=== PATIENT | female | born 1945 | race Caucasian/White ===

== ENCOUNTER → 2016-10-30 | Outpatient (CLI) | payer BC ==
[~2016-10-30] MED LIST: CHOL100010 PO; CHOL200010 PO; CRDCD120 PO; ELQ25 PO; IBUP-1050 PO; LACT1CAP6 PO; LEVO75TA PO; RANITAB33 PO; ZANTAC PO
--- NOTE | 2016-11-01 16:08 | MAMMOGRAPHY REPORT ---
BILATERAL DIGITAL SCREENING MAMMOGRAM TOMOSYNTHESIS WITH CAD: 10/30/2016 CLINICAL HISTORY: Routine screening. Patient has no complaints. TECHNIQUE: Breast tomosynthesis in addition to standard 2D mammography was performed. Current study was also evaluated with a Computer Aided Detection (CAD) system. COMPARISON: Comparison is made to exams dated: 10/19/2015 mammogram, 10/21/2014 ultrasound, 10/21/2014 mammogram, 10/10/2014 mammogram, and 10/07/2013 mammogram - [facility]. BREAST COMPOSITION: The tissue of both breasts is extremely dense, which lowers the sensitivity of m ammography. FINDINGS: No suspicious masses, calcifications, or areas of architectural distortion are noted in ei ther breast. There has been no significant interval change compared to prior exams. IMPRESSION: ACR BI-RADS CATEGORY 1: NEGATIVE There is no mammographic evidence of malignancy. A 1 year screening mammogram is recommended. The pa tient will receive written notification of the results. Approximately 10% of breast cancers are not detected with mammography. A negative mammographic report should not delay biopsy if a clinically suggestive mass is present. Lilly Atkinson M.D. /:11/01/2016 15:52:49 Aesthetics Instructor: Arelis NORRIS(Sofi)(M), [facility] letter sent: Normal 1/2 BI-RADS Code: ACR BI-RADS Category 1: Negative
== END | disposition home or self-care (01) ==
LOC: C.MAMM 10:47
PROVIDERS: ATTEND Obstetrics & Gynecology
DX: Z12.31 Encounter for screening mammogram for malignant neoplasm of breast (principal)

== ENCOUNTER 2016-11-05 13:59 | Observation (INO) | payer BC ==
[~2016-11-05] VITALS: Ht 175.3 cm; Wt 61.0 kg
[~2016-11-05 13:59] MED LIST changes: -CHOL200010 PO; -CRDCD120 PO; -ELQ25 PO; -ESMOLOL HCL 10 MG/ML 10 ML VIAL ONE; -LIDOCAINE HCL 2% 2 ML VIAL (20MG/ML) ONE; -METOPROLOL TARTRATE 1 MG/ML VIAL ONE; -PROPOFOL IV EMULSION 10 MG/ML 20 ML VIAL IV ONE; -SODIUM CHLORIDE 0.9% 500ML 500 ML IV ONE; -ZANTAC PO
[2016-11-05] MEDS ORDERED: SODIUM CHLORIDE 0.9% 1000ML 1,000 ML IV STA (14:21)
--- NOTE | 2016-11-05 14:24 | EMERGENCY ROOM VISIT NOTE ---
History Report prepared by Nathan: Letty Paz Under the Supervision of: Mikaela SchmittO. First contact with patient: 14:01 Stated Complaint: afib s/p colonscopy History of Present Illness The patient is a 70 year old female who presents to the Emergency Room with complaints of a sudden irregular heartbeat that began prior to arrival. The patient reports that today she had a colonoscopy at 1235. She states that she woke up after the procedure in the room and was told that she went into atrial fibrillation. The patient denies any history of atrial fibrillation, but states that she has extra beats. She states that she previously followed with cardiology, but denies following with cardiology currently. The patient reports a history of Graves disease and a thyroid problem. She states that she was having a large colonoscopy because a polyp was found during her colonoscopy last year. The patient denies any tachycardia, palpitations, chest pain, shortness of breath, dizziness, lightheadedness, nausea, numbness, or swelling in her lower extremities. Source of History: patient Onset: prior to arrival Position: other (global) Quality: other (irregular heartbeat) Timing: other (sudden) Associated Symptoms: No chest pain, No SOB, No nausea, No numbness Review of Systems See HPI for pertinent positives & negatives. A total of 10 systems reviewed and were otherwise negative. Past Medical & Surgical Medical Problems: (1) Colitis presumed infectious (2) Colitis, acute (3) History of - pneumonia (4) HYPOTHYROIDISM NOS (5) Leukopenia (6) New onset a-fib Family History Diabetes mellitus FHx: cancer FHx: heart disease Hypertension Social History Smoking Status: Never Smoker Alcohol Use: occasionally Drug Use: none Marital Status: Housing Status: lives with family Occupation Status: retired Current/Historical Medications Scheduled Apixaban (Eliquis), 5 MG PO BID Cholecalciferol (Vitamin D), 2,000 UNITS PO DAILY Diltiazem HCl (Diltiazem Cd), 120 MG PO QAM Lactobacillus (Probiotic), 1 CAP PO QAM Levothyroxine Sodium (Synthroid), 75 MCG PO QAM Scheduled PRN Ibuprofen (Advil), 200 MG PO Q4H PRN for Pain Ranitidine Hcl (Zantac), 75 MG PO DAILY PRN for Indigestion Allergies Coded Allergies: Alendronate (Verified Allergy, Unknown, Bone pain., 10/31/16) Propylthiouracil (Verified Allergy, Unknown, Palpitations., 10/31/16) Physical Exam Vital Signs Date Time Temp Pulse Resp B/P (MAP) Pulse Ox O2 Delivery O2 Flow Rate FiO2 11/05/16 15:14 86 15 150/96 98 Room Air 11/05/16 14:27 84 11/05/16 14:13 36.6 104 16 151/99 99 Room Air 11/05/16 14:13 99 Room Air 11/05/16 14:13 98 Room Air Physical Exam GENERAL: alert, well appearing, well nourished, no distress, non-toxic EYE EXAM: normal conjunctiva, PERRL and EOM's grossly intact OROPHARYNX: no exudate, no erythema, lips, buccal mucosa, and tongue normal and mucous membranes are moist NECK: supple, no nuchal rigidity, no adenopathy, non-tender LUNGS: Clear to auscultation. Normal chest wall mechanics HEART: Heart rate is fast and irregular. No murmurs. ABDOMEN: abdomen soft, non-tender, normo-active bowel sounds, no masses, no rebound or guarding. BACK: Back is symmetrical on inspection and there is no deformity, no midline tenderness, no CVA tenderness. SKIN: no rashes and no bruising UPPER EXTREMITIES: upper extremities are grossly normal. LOWER EXTREMITIES: No pitting edema. NEURO EXAM: Normal sensorium, cranial nerves II-XII grossly intact, normal speech, no gross weakness of arms, no gross weakness of legs. Medical Decision & Procedures ER Provider Diagnostic Interpretation: Radiology results have been interpreted by the radiologist and reviewed by me. CHEST ONE VIEW PORTABLE CLINICAL HISTORY: 70 years-old Female presenting with new A.fib. TECHNIQUE: Portable upright AP view of the chest was obtained. COMPARISON: None. FINDINGS: Cardiomediastinal silhouette normal. Lungs and pleural spaces clear. Osseous structures normal. Upper abdomen normal. IMPRESSION: 1. No acute cardiopulmonary disease. Electronically signed by: Tanner Adams M.D. 11/05/2016 2:36 PM Dictated Date/Time: 11/05/2016 2:36 PM Laboratory Results Test 11/05/16 15:10 Immature Granulocyte % (Auto) 0.2 % White Blood Count 5.95 K/uL (4.8-10.8) Red Blood Count 4.55 M/uL (4.2-5.4) Hemoglobin 15.1 g/dL (12.0-16.0) Hematocrit 42.6 % (37-47) Mean Corpuscular Volume 93.6 fL (80-100) Mean Corpuscular Hemoglobin 33.2 pg (25-34) Mean Corpuscular Hemoglobin Concent 35.4 g/dl (32-36) Platelet Count 177 K/uL (130-400) Mean Platelet Volume 9.6 fL (7.4-10.4) Neutrophils (%) (Auto) 73.8 % Lymphocytes (%) (Auto) 16.8 % Monocytes (%) (Auto) 7.9 % Eosinophils (%) (Auto) 0.8 % Basophils (%) (Auto) 0.5 % Neutrophils # (Auto) 4.39 K/uL (1.4-6.5) Lymphocytes # (Auto) 1.00 K/uL (1.2-3.4) Monocytes # (Auto) 0.47 K/uL (0.11-0.59) Eosinophils # (Auto) 0.05 K/uL (0-0.5) Basophils # (Auto) 0.03 K/uL (0-0.2) Immature Granulocyte # (Auto) 0.01 K/uL (0.00-0.02) Prothrombin Time 11.0 SECONDS (9.0-12.0) Prothromb Time International Ratio 1.0 (0.9-1.1) Magnesium Level 2.2 mg/dl (1.8-2.4) Total Bilirubin 2.1 mg/dl (0.2-1) Aspartate Amino Transf (AST/SGOT) 21 U/L (15-37) Alanine Aminotransferase (ALT/SGPT) 31 U/L (12-78) Alkaline Phosphatase 73 U/L (45-117) Troponin I < 0.015 ng/ml (0-0.045) Pro-B-Type Natriuretic Peptide 898 pg/ml (0-900) Total Protein 7.2 gm/dl (6.4-8.2) Albumin 3.9 gm/dl (3.4-5.0) Globulin 3.3 gm/dl (2.5-4.0) Albumin/Globulin Ratio 1.2 (0.9-2) Thyroid Stimulating Hormone (TSH) 1.410 uIu/ml (0.300-4.500) Laboratory results per my review. Medications Administered Medications (Trade) Dose Ordered Sig/Natalya Route Start Time Stop Time Status Last Admin Dose Admin Sodium Chloride 1,000 ml @ 125 mls/hr Q8H STAT IV 11/05/16 14:21 11/05/16 22:20 DC 11/05/16 15:16 125 MLS/HR ECG Indication: other (atrial fibrillation) Rate (beats per minute): 68 Rhythm: atrial fibrillation Findings: no acute ischemic change, other (normal axis, normal QTC, normal QRS) ED Course 1412: The patient was evaluated in room C1B. A complete history and physical exam was performed. 1421: Ordered Sodium Chloride 1000 ml @ 125 mls/hr IV. 1435: Discussed with LAURA Shetty in endo, patient was initially normal sinus on the monitor per her understanding during the procedure, upon insertion of the scope perform a colonoscopy patient's heart rate was in the 130s and it was noted that she was in A. fib. Patient was given 180 mg of propofol and 40 g of lidocaine for anesthesia. Following the change in her rhythm, patient was given 2.5 mg IV of metoprolol which brought her heart rate down in the 70s and 80s which is where she remained for the rest of the procedure. 1507: I spoke to Dr. Ledezma, Anesthesiology. He states that the patient went into atrial fibrillation about 2/[address] way through the procedure. He states that the patient was treated, but states that since this was new he sent the patient to the emergency department for further work up and treatment. 1508: Ordered Diltiazem HCl 1 ea IV. 1515: Ordered Diltiazem HCl 125 mg/Dextrose 125 ml @ 0 mls/hr Protocol IV. 1556: Discussed with CELESTINE Carvalho with Dr. Layne for evaluation. Cardizem currently off. Medical Decision Differential diagnosis: Etiologies such as premature contractions, electrolyte abnormality, cardiac dysrhythmia, thyroid dysfunction, pulmonary embolism, infection, gastrointestinal, as well as others were entertained. Pt well appearing and asymptomatic, no hx of a.fib. Given metoprolol during procedure and mostly rate controlled while in the ER. Cardizem ready but turned off as pt remained less than 100. Pt given single dose of lovenox as still in a.fib. No hx of gi bleed and no polypectomy today. VS stable and pt well appearing. No other obvious etiology of pt's new a.fib. Low CHADS-VASC2 score but likely needs cardiology evaluation given persistence of a.fib despite being rate controlled. Doubt related to acute thyroid dysfunction despite hx of Graves, no recent med changes. No recent illness and sx hx or PE to suggest acute infectious etiology. Medication Reconcilliation Current Medication List: was personally reviewed by me Blood Pressure Screening Patient's blood pressure: Elevated blood pressure Blood pressure disposition: Elevated BP felt to be situational, Did not require urgent referral Impression Primary Impression: Atrial fibrillation Scribe Attestation The scribe's documentation has been prepared under my direction and personally reviewed by me in its entirety. I confirm that the note above accurately reflects all work, treatment, procedures, and medical decision making performed by me. Departure Information Dispostion Being Evaluated By Hospitalist Prescriptions Apixaban (ELIQUIS) 2.5 Mg Tab 5 MG PO BID, #60 TAB Prov: Bar Rollins D.O. 11/06/16 Diltiazem HCl (Diltiazem Cd) 120 Mg Capcr 120 MG PO QAM, #30 TABS Prov: Bar Rollins D.O. 11/06/16 Referrals Edy Monk M.D. (PCP) Problem Qualifiers Primary Impression: Atrial fibrillation Atrial fibrillation type: unspecified Qualified Codes: I48.91 - Unspecified atrial fibrillation
--- NOTE | 2016-11-05 14:38 | DIAGNOSTIC IMAGING REPORT ---
CHEST ONE VIEW PORTABLE CLINICAL HISTORY: 70 years-old Female presenting with new A.fib. TECHNIQUE: Portable upright AP view of the chest was obtained. COMPARISON: None. FINDINGS: Cardiomediastinal silhouette normal. Lungs and pleural spaces clear. Osseous structures normal. Upper abdomen normal. IMPRESSION: 1. No acute cardiopulmonary disease. Electronically signed by: Tanner Adams M.D. 11/05/2016 2:36 PM Dictated Date/Time: 11/05/2016 2:36 PM
[2016-11-05] MEDS ORDERED: DILTIAZEM BOLUS / DRIP IV STA (15:08)
[2016-11-05] MEDS ORDERED: DILTIAZEM HCL INJ 125 MG in DEXTROSE 5% 100ML IV PRN (15:15)
[2016-11-05 15:31] LABS: BASO % 0.5 %; BASO ABS # 0.03 K/uL (0-0.2); COMPLETE YES; EOS % 0.8 %; HEMATOCRIT 42.6 % (37-47); IG% 0.2 %; LYMPH % 16.8 %; MEAN CELL VOLUME 93.6 fL (80-100); MEAN CORPUSCULAR HEMOGLOBIN 33.2 pg (25-34); MEAN CORPUSCULAR HGB CONC 35.4 g/dl (32-36); MEAN PLATELET VOLUME 9.6 fL (7.4-10.4); MONO % 7.9 %; NEUT % 73.8 %; PLATELET COUNT 177 K/uL (130-400); RED BLOOD COUNT 4.55 M/uL (4.2-5.4); WHITE BLOOD COUNT 5.95 K/uL (4.8-10.8)
[2016-11-05 15:48] LABS: ALT/SGPT 31 U/L (12-78); BLOOD UREA NITROGEN 8 mg/dl (7-18); BUN/CREATININE RATIO 9.3 (10-20); CALCIUM 8.9 mg/dl (8.5-10.1); CARBON DIOXIDE 28 mmol/L (21-32); CHLORIDE 105 mmol/L (98-107); CREATININE 0.89 mg/dl (0.60-1.20); GLUCOSE 84 mg/dl (70-99); POTASSIUM 3.9 mmol/L (3.5-5.1); SODIUM 139 mmol/L (136-145)
[2016-11-05] MEDS ORDERED: CHOL200010 PO (15:51)
[2016-11-05] MEDS ORDERED: ENOXAPARIN 1 MG/KG SQ STA (15:55)
[2016-11-05 15:58] LABS: ALB/GLOB RATIO 1.2 (0.9-2); ALKALINE PHOSPHATASE 73 U/L (45-117); AST/SGOT 21 U/L (15-37)
[2016-11-05] MEDS ORDERED: ACETAMINOPHEN 325 MG TAB PO PRN (16:45)
[2016-11-05] MEDS ORDERED: ENOXAPARIN 1 MG/KG SQ SCH (16:45)
[2016-11-05] MEDS ORDERED: IBUPROFEN 200 MG TAB PO PRN (16:45)
[2016-11-05] MEDS ORDERED: METOPROLOL TARTRATE 1 MG/ML VIAL IV PRN (16:45)
[2016-11-05] MEDS ORDERED: POLYETHYLENE (MIRALAX) 17 GM PACK PO PRN (16:45)
[2016-11-05] MEDS ORDERED: ONDANSETRON INJ 2 MG/ML 2 ML VIAL IV PRN (16:45)
[2016-11-05] MEDS ORDERED: ALUMINUM/MAGNESIUM/SIMETH (MAALOX MAX) 30 ML UDC PO PRN (16:45)
[2016-11-05] MEDS ORDERED: MAGNESIUM HYDROXIDE SUSP 30 ML UDC PO PRN (16:45)
[2016-11-05 17:17] LABS: URINE APPEARANCE CLEAR (CLEAR); URINE BILIRUBIN NEG (NEG); URINE COLOR YELLOW; URINE EPITHELIAL CELL AUTO 0-5 /lpf (0-5); URINE NITRITE NEG (NEG); URINE SPECIFIC GRAVITY 1.011 (1.000-1.030); UROBILINOGEN NEG (NEG); ZZUR CULT IF INDIC CLEAN CATCH NO
--- NOTE | 2016-11-05 17:17 | History and Physical ---
History & Physical Date & Time of Service: Nov 05, 2016 at 16:51 Chief Complaint: afib s/p colonscopy Primary Care Physician: Edy Monk M.D. History of Present Illness Source: patient, clinic records, hospital records This is a 70 y/o female with a history of hypothyroidism s/p radiation for Grave 's disease and osteopenia who presented to the ED on 11/05 with new onset a-fib during her colonoscopy earlier today. The patient came to [facility] for a colonoscopy to follow up on colonic polyps that had been found in her scope last year. During the procedure, the patient developed atrial fibrillation with RVR, with her HR up into the 130s. The patient was given Lopressor 2.5 mg IV x 1 by anesthesia which did improve her HR to 70s-80s. The patient remained rate controlled for the rest of the procedure. Upon waking, the patient denied any chest pain, palpitations, shortness of breath, dizziness or lightheadedness. The patient was then sent to the ED for further evaluation as the patient had no prior history of a-fib. The patient's HR did start going into the 110s again and she was about to be started on a diltiazem drip, but her rate then went back into the 80s, and the diltiazem was never given. The patient denies fevers, chills, sweats, chest pain, palpitations, claudication, cough, wheezing, shortness of breath, nausea, vomiting, abdominal pain, dysuria , hematuria, urinary retention, paralysis, weakness, numbness and tingling. Past Medical/Surgical History Medical Problems: (1) History of - pneumonia Status: Resolved (2) HYPOTHYROIDISM NOS Status: Chronic (3) Leukopenia Status: Chronic H/o Grave's disease s/p radiation--resolved Osteopenia Family History Diabetes mellitus FHx: cancer FHx: heart disease Hypertension Multiple myeloma Myocardial infarction Renal failure Stroke Social History Smoking Status: Former Smoker (quit in 1987) Smokeless Tobacco Use: No Alcohol Use: socially (few drinks/week) Drug Use: none Marital Status: Housing status: lives with significant other Occupational Status: retired Immunizations History of Influenza Vaccine: Yes Influenza Vaccine Date: Dec 16, 2011 History of Tetanus Vaccine?: Yes Tetanus Immunization Date: Sep 15, 2007 History of Pneumococcal: Yes Pneumococcal Date: Dec 16, 2011 History of Hepatitis B Vaccine: No Multi-Drug Resistant Organisms History of MDRO: No Allergies Coded Allergies: Alendronate (Verified Allergy, Unknown, Bone pain., 10/31/16) Propylthiouracil (Verified Allergy, Unknown, Palpitations., 10/31/16) Home Medications Scheduled Apixaban (Eliquis), 5 MG PO BID Cholecalciferol (Vitamin D), 2,000 UNITS PO DAILY Diltiazem HCl (Diltiazem Cd), 120 MG PO QAM Lactobacillus (Probiotic), 1 CAP PO QAM Levothyroxine Sodium (Synthroid), 75 MCG PO QAM Scheduled PRN Ibuprofen (Advil), 200 MG PO Q4H PRN for Pain Ranitidine Hcl (Zantac), 75 MG PO DAILY PRN for Indigestion Review of Systems Constitutional: No fever, No chills, No sweats, No weakness, No fatigue Eyes: No worsening of vision, No eye pain, No diplopia ENT: No hearing loss, No sore throat, No trouble swallowing Respiratory: No cough, No wheezing, No shortness of breath Cardiovascular: No chest pain, No claudication, No palpitations Abdomen: No pain, No nausea, No vomiting Musculoskeletal: No joint pain, No muscle pain, No calf pain Genitourinary - Female: No dysuria, No urinary retention, No hematuria Neurologic: No paralysis, No weakness, No numbness/tingling Integumentary: No rash, No itch, No color change Physical Exam Vital Signs Date Time Temp Pulse Resp B/P (MAP) Pulse Ox O2 Delivery O2 Flow Rate FiO2 11/05/16 15:14 86 15 150/96 98 Room Air 11/05/16 14:27 84 11/05/16 14:13 36.6 104 16 151/99 99 Room Air 11/05/16 14:13 99 Room Air 11/05/16 14:13 98 Room Air General appearance: Well-developed, well-nourished, no apparent distress Head: Normocephalic, atraumatic Eyes: Normal inspection, PERRL, EOMI ENT: Normal ENT inspection, hearing grossly normal, pharynx normal Neck: Supple, no JVD, trachea midline Respiratory/Chest: Lungs clear to auscultation, normal breath sounds, no respiratory distress Cardiovascular: +Irregularly irregular, tachycardic. No gallop, no murmur Abdomen/GI: Normal bowel sounds, non-tender, soft Extremities/Musculoskeletal: Normal inspection, no calf tenderness, no pedal edema Neurological/Psych: Alert, normal mood/affect, oriented x 3 Skin: Normal color, warm/dry, no rash Diagnostics Laboratory Results Results Past 24 Hours Test 11/05/16 15:10 11/05/16 16:34 Range/Units White Blood Count 5.95 4.8-10.8 K/uL Red Blood Count 4.55 4.2-5.4 M/uL Hemoglobin 15.1 12.0-16.0 g/dL Hematocrit 42.6 37-47 % Mean Corpuscular Volume 93.6 80-100 fL Mean Corpuscular Hemoglobin 33.2 25-34 pg Mean Corpuscular Hemoglobin Concent 35.4 32-36 g/dl Platelet Count 177 130-400 K/uL Mean Platelet Volume 9.6 7.4-10.4 fL Neutrophils (%) (Auto) 73.8 % Lymphocytes (%) (Auto) 16.8 % Monocytes (%) (Auto) 7.9 % Eosinophils (%) (Auto) 0.8 % Basophils (%) (Auto) 0.5 % Neutrophils # (Auto) 4.39 1.4-6.5 K/uL Lymphocytes # (Auto) 1.00 1.2-3.4 K/uL Monocytes # (Auto) 0.47 0.11-0.59 K/uL Eosinophils # (Auto) 0.05 0-0.5 K/uL Basophils # (Auto) 0.03 0-0.2 K/uL RDW Standard Deviation 39.8 36.4-46.3 fL RDW Coefficient of Variation 11.8 11.5-14.5 % Immature Granulocyte % (Auto) 0.2 % Immature Granulocyte # (Auto) 0.01 0.00-0.02 K/uL Prothrombin Time 11.0 9.0-12.0 SECONDS Prothromb Time International Ratio 1.0 0.9-1.1 Sodium Level 139 136-145 mmol/L Potassium Level 3.9 3.5-5.1 mmol/L Chloride Level 105 98-107 mmol/L Carbon Dioxide Level 28 21-32 mmol/L Anion Gap 6.0 3-11 mmol/L Blood Urea Nitrogen 8 7-18 mg/dl Creatinine 0.89 0.60-1.20 mg/dl Est Creatinine Clear Calc Drug Dose 57.6 ml/min Estimated GFR () 76.1 Estimated GFR (Non- 65.7 BUN/Creatinine Ratio 9.3 10-20 Random Glucose 84 70-99 mg/dl Calcium Level 8.9 8.5-10.1 mg/dl Total Bilirubin 2.1 0.2-1 mg/dl Aspartate Amino Transf (AST/SGOT) 21 15-37 U/L Alanine Aminotransferase (ALT/SGPT) 31 12-78 U/L Alkaline Phosphatase 73 45-117 U/L Troponin I < 0.015 0-0.045 ng/ml Pro-B-Type Natriuretic Peptide 898 0-900 pg/ml Total Protein 7.2 6.4-8.2 gm/dl Albumin 3.9 3.4-5.0 gm/dl Globulin 3.3 2.5-4.0 gm/dl Albumin/Globulin Ratio 1.2 0.9-2 Thyroid Stimulating Hormone (TSH) 1.410 0.300-4.500 uIu/ml Diagnostic Radiology Reviewed the following studies and agree with interpretation as follows: Patient Name: ERNIE CANDELARIO Unit Number: [id number] Dictated: 11/05/161435 Transcribed: 11/05/161435 PBS Printed Date/Time: [~ rep prt dt]/[~ rep prt tm] [~ rep ct labl] - [~ rep ct ivnm] [facility] [place] [address] Dictated: 11/05/161435 Transcribed: 11/05/161435 PBS Printed Date/Time: [~ rep prt dt]/[~ rep prt tm] [~ rep ct labl] - [~ rep ct ivnm] Patient: ERNIE CANDELARIO Address1: [address] [place] [address] Rec: [id number] Address2: Acct ID: [id number] [facility] Zip: [place] [address] Date: 1945 Sex: F Room/Bed: Ref Phy: Edy Monk M.D. SC: C.EDC Att Phy: Report #: [id number] Misty Phy: Edy Monk M.D. Test: CXR1P Admit Phy: Configuration Release Manager: TONO Interpreting Phy: Tanner Adams MD Diagnosis: afib s/p colonscopy Ordering Phy: Cary Howard DO Service Date: 11/05/16 Admit Date: 11/05/16 MNE: [id number] CONF: DICTATED BY: Tanner Adams MD]] CC: Edy Monk M.D. Pheasant, Karen S., DO Endcc: [~ rep ct add3]] CHEST ONE VIEW PORTABLE CLINICAL HISTORY: 70 years-old Female presenting with new A.fib. TECHNIQUE: Portable upright AP view of the chest was obtained. COMPARISON: None. FINDINGS: Cardiomediastinal silhouette normal. Lungs and pleural spaces clear. Osseous structures normal. Upper abdomen normal. IMPRESSION: 1. No acute cardiopulmonary disease. Electronically signed by: Tanner Adasm M.D. 11/05/2016 2:36 PM Dictated Date/Time: 11/05/2016 2:36 PM The status of this report is Signed. Draft = Not yet reviewed or approved by Radiologist. Signed = Reviewed and approved by Radiologist. <AttendingPhy></AttendingPhy> <FamilyPhy>Edy Monk M.D.</FamilyPhy > <PrimaryPhy>Edy Monk M.D.</PrimaryPhy> <UnitNumber>[id number]</ UnitNumber> <VisitNumber>[id number]</VisitNumber> <PatientName>ERNIE CANDELARIO</PatientName> <DateOfBirth>1945</DateOfBirth> <Location>C[facility]< /Location> <ServiceDate>11/05/16</ServiceDate> <MNE>ESINDI</MNE> <OrderingPhy> Cary Howard DO</OrderingPhy> <OrderingPhyMNE>f rep ord dr lane</ OrderingPhyMNE> <DictatingPhyMNE>f rep dict mne</DictatingPhyMNE> <CCListMNE> f rep ct mne</CCListMNE> <AdmittingPhyMNE>f pt admit dr lane</AdmittingPhyMNE> < AttendingPhyMNE>f pt attend dr lane</AttendingPhyMNE> <ConsultingPhyMNE>f pt consult dr lane</ConsultingPhyMNE> <FamilyPhyMNE>f pt fam dr lane</FamilyPhyMNE> <OtherPhyMNE>f pt other dr lane</OtherPhyMNE> < PrimaryPhyMNE>f pt prim care dr lane</PrimaryPhyMNE> <ReferringPhyMNE>f pt referring dr lane</ReferringPhyMNE> EKG Reviewed EKG and agree with interpretation as follows: 68 bpm, atrial fibrillation Impression Assessment and Plan 70 y/o female with a history of hypothyroidism s/p radiation for Grave's disease and osteopenia who presented to the ED on 11/05 with new onset a-fib during her colonoscopy earlier today. Pt with new onset a-fib with RVR during scope, rate controlled after receiving Lopressor 2.5 mg IV x 1 during procedure. Pt has remained asymptomatic. EKG shows rate controlled a-fib. CXR shows no acute disease. Pt afebrile, VSS in ED. Pt DID NOT receive diltiazem in ED. New onset a-fib--currently rate controlled -Admit to telemetry for observation -Troponin negative -TSH WNL -Check magnesium -Echocardiogram ordered -Lopressor 5 mg IV q4h prn HR >120 -Consult cardiology, appreciate recs -Hold off anticoagulation today as pt had polyp biopsies taken earlier. Spoke with Dr. Nowak, recommends holding off AC until tomorrow if possible. Can start AC tomorrow. -EKG q am and prn with chest pain Hypothyroidism s/p radiation for Grave's--stable, TSH WNL -Continue levothyroxine 75 mcg PO qd Osteopenia -Continue vitamin D 2000 IU PO qd DVT prophylaxis -Hold chemical prophylaxis today only due to biopsies taken -LUIS Franco Code Status -Level I, FULL RESUSCITATION STATUS Attending Addendum: I have physically seen and examined this patient, have directed the physician assistants medical activities, and agree with the H&P as noted above with the following exceptions as noted. The patient is awake, well-developed and adequately nourished, alert and oriented 3, normocephalic and atraumatic, lying in bed and in no acute distress. HEENT--PERRL, EOMI, mucous membranes and oropharynx dry. Neck--supple, no JVD or bruits, thyroid normal, trachea midline, no adenopathy. Heart--irregularly irregular and tachycardic, no murmurs, rubs or gallops. Lungs--clear bilaterally with good air movement, no respiratory distress, no accessory muscle use. Abdomen--normal bowel sounds and soft, nontender and nondistended, no hernias or masses, no organomegaly. Extremities--no cyanosis, clubbing or edema. There are good distal pulses b/l. Dermatologic--normal skin turgor, normal color, warm and dry, no abnormal lymph nodes, no rash. Neurologic--cranial nerves II through XII grossly intact, motor and sensory examination normal. Rheumatologic--normal range of motion, nontender, muscles and joints. Psychiatric--normal affect. Assessment and Plan: New onset atrial fibrillation--The patient will be admitted to telemetry for serial cardiac enzymes, cardiac rhythm monitoring and a 2-D echocardiogram with Dopplers. Lopressor 5 mg IV every 4 hours when necessary heart rate greater than 120. Hold on any potential anticoagulation for 24 hours as patient is status post colon biopsies earlier this morning. Consult cardiology Hypothyroidism/status post radiation for grave's-- Continue levothyroxine sodium 75 g by mouth daily. Level of Care Telemetry Advanced Directives Existing Advance Directive: No Existing Living Will: No Existing Power of Retail Representative: No Resuscitation Status FULL RESUSCITATION VTE Prophylaxis VTE Risk Assessment Done? Y/N: Yes Risk Level: Moderate Given or contraindicated: T.E.D. Stockings, SCD's
[2016-11-05 17:19] LABS: MANUAL MICROSCOPIC REQUIRED? NO; REVIEW REQ? NO
[2016-11-05] MEDS ORDERED: IV FLUIDS COMPLETED PRN (18:45)
[2016-11-05 19:11] VITALS: BP 158/94; PULSE 94; TEMP 36.8; O2SAT 98
[2016-11-05 19:44] VITALS: BP 185/83; PULSE 104; TEMP 36.6; Ht 175.3 cm; Wt 61.0 kg
[2016-11-06] VITALS (8 sets, daily range): BP systolic 121–161; BP diastolic 78–96; PULSE 76–104; TEMP 36.5–37.1; O2SAT 96–98
[2016-11-06] MEDS ORDERED: LEVOTHYROXINE 75 MCG TAB PO SCH (06:00)
[2016-11-06 08:13] LABS: HEMATOCRIT 42.1 % (37-47); MEAN CELL VOLUME 93.3 fL (80-100); MEAN CORPUSCULAR HGB CONC 35.4 g/dl (32-36); MEAN PLATELET VOLUME 9.9 fL (7.4-10.4); PLATELET COUNT 194 K/uL (130-400); RED BLOOD COUNT 4.51 M/uL (4.2-5.4); WHITE BLOOD COUNT 5.41 K/uL (4.8-10.8)
[2016-11-06 08:44] LABS: BUN/CREATININE RATIO 12.7 (10-20); CALCIUM 9.3 mg/dl (8.5-10.1); CREATININE 0.85 mg/dl (0.60-1.20); POTASSIUM 3.6 mmol/L (3.5-5.1)
[2016-11-06] MEDS ORDERED: CHOLECALCIFEROL 1000 INTER.UNIT TAB PO SCH (09:00)
--- NOTE | 2016-11-06 09:07 | Cardiology Consultation ---
Cardiology Consultation Date of Consultation: Nov 06, 2016. Requesting Physician: Dr. Escalante Reason for Consultation: New onset atrial fibrillation Pt evaluation today including: conversation w/ patient, physical exam, lab review, review of studies, review of inpatient medication list History of Present Illness This is a very pleasant 70-year-old woman who has a history of hypothyroidism but no known cardiac history. She was undergoing colonoscopy when she developed atrial fibrillation, the rate was somewhat fast and was controlled initially with Cardizem which was subsequently discontinued. She went through the colonoscopy and afterwards remained in atrial fibrillation and was therefore admitted for observation. She reports no symptoms whatsoever during atrial fibrillation today, but remains in atrial fibrillation. She has not noticed any difficulty with exertion in the past, does not have palpitations and has not had lightheadedness or dizziness. She is on no medications for blood pressure. Her thyroid medications have been stable and her TSH is normal this admission. An echo has been done today but the result is pending. Past Medical/Surgical History (1) HYPOTHYROIDISM NOS (2) History of - pneumonia (3) Leukopenia Family History Diabetes mellitus FHx: cancer FHx: heart disease Hypertension Multiple myeloma Myocardial infarction Renal failure Stroke Social History Smoking Status: Former Smoker History of Alcohol Use: Yes (mixed drink or wine, </= 1/day) Review of Systems Constitutional: No fever, No weight loss, No weakness Respiratory: No cough, No wheezing, No shortness of breath, No dyspnea on exertion Cardiac: No chest pain, No orthopnea, No PND, No edema, No palpitations Abdomen: No pain, No nausea, No vomiting, No diarrhea, No GI bleeding Female : No problem reported Neurologic: No paralysis, No weakness, No numbness/tingling, No balance problems Heme: No abnormal bleeding/bruising, No clotting problems Endo: No fatigue Skin: No problem reported All Other Systems: Reviewed and Negative Allergies Coded Allergies: Alendronate (Verified Allergy, Unknown, Bone pain., 10/31/16) Propylthiouracil (Verified Allergy, Unknown, Palpitations., 10/31/16) Medications Current Inpatient Medications Medications (Trade) Dose Ordered Sig/Natalya Route Start Time Stop Time Status Last Admin Dose Admin Acetaminophen (Tylenol Tab) 650 mg Q4H PRN PO 11/05/16 16:45 12/05/16 16:44 Al Hydrox/Mg Hydrox/Simethicone (Maalox Max Susp) 15 ml Q4H PRN PO 11/05/16 16:45 12/05/16 16:44 Magnesium Hydroxide (Milk Of Magnesia Susp) 30 ml Q12H PRN PO 11/05/16 16:45 12/05/16 16:44 Ondansetron HCl (Zofran Inj) 4 mg Q6H PRN IV 11/05/16 16:45 12/05/16 16:44 Polyethylene (Miralax Powder Packet) 17 gm DAILY PRN PO 11/05/16 16:45 12/05/16 16:44 Metoprolol Tartrate (Lopressor Iv) 5 mg Q4 PRN IV 11/05/16 16:45 12/05/16 16:44 Ibuprofen (Advil Tab) 200 mg Q4H PRN PO 11/05/16 16:45 12/05/16 16:44 Levothyroxine Sodium (Synthroid Tab) 75 mcg DAILYBB PO 11/06/16 06:00 12/06/16 06:59 11/06/16 06:20 75 MCG Cholecalciferol (Vitamin D Tab) 2,000 inter.unit QAM PO 11/06/16 09:00 12/06/16 08:59 11/06/16 08:01 2,000 INTER.UNIT Miscellaneous (Iv Fluids Completed) 1 ea PRN PRN N/A 11/05/16 18:45 11/05/17 18:44 Physical Exam Vital Signs Past 12 Hours Date Time Temp Pulse Resp B/P (MAP) Pulse Ox O2 Delivery O2 Flow Rate FiO2 11/06/16 08:00 98 Room Air 11/06/16 07:08 36.5 103 18 154/83 (106) 98 Room Air 11/06/16 04:39 36.8 89 18 161/96 (117) 96 Room Air 11/06/16 04:02 Room Air 11/06/16 00:14 37.1 104 18 147/88 (107) 96 Room Air 11/06/16 00:01 Room Air Constitutional: General Apperance: heathly-appearing Level of Distress: NAD Psychiatric: Mental Status: active & alert Head: normocephalic Eyes: EOM: EOMI ENMT: normal ENT inspection, hearing grossly normal Neck: supple, no masses Lungs: Respiratory effort: no dyspnea, good air movement Auscultation: breath sounds normal, no wheezing Cardiovascular: Heart Auscultation: no murmurs, no rubs, no gallops, tachycardia, irregular rate rhythm Peripheral Pulses: Bruits: none appreciated Abdomen: Bowel Sounds: normal Inspection & Palpation: soft, no tenderness, guarding & rebound, no masses Musculoskeletal: normal strength (5/5 throughout) Extremities: no edema Neurologic: Cranial Nerves: grossly intact Sensation: grossly intact Data Laboratory Results: Last 24 Hours Test 11/05/16 15:10 11/05/16 17:05 11/06/16 07:03 White Blood Count 5.95 K/uL 5.41 K/uL Red Blood Count 4.55 M/uL 4.51 M/uL Hemoglobin 15.1 g/dL 14.9 g/dL Hematocrit 42.6 % 42.1 % Mean Corpuscular Volume 93.6 fL 93.3 fL Mean Corpuscular Hemoglobin 33.2 pg 33.0 pg Mean Corpuscular Hemoglobin Concent 35.4 g/dl 35.4 g/dl Platelet Count 177 K/uL 194 K/uL Mean Platelet Volume 9.6 fL 9.9 fL Neutrophils (%) (Auto) 73.8 % Lymphocytes (%) (Auto) 16.8 % Monocytes (%) (Auto) 7.9 % Eosinophils (%) (Auto) 0.8 % Basophils (%) (Auto) 0.5 % Neutrophils # (Auto) 4.39 K/uL Lymphocytes # (Auto) 1.00 K/uL Monocytes # (Auto) 0.47 K/uL Eosinophils # (Auto) 0.05 K/uL Basophils # (Auto) 0.03 K/uL RDW Standard Deviation 39.8 fL 39.6 fL RDW Coefficient of Variation 11.8 % 11.7 % Immature Granulocyte % (Auto) 0.2 % Immature Granulocyte # (Auto) 0.01 K/uL Prothrombin Time 11.0 SECONDS Prothromb Time International Ratio 1.0 Sodium Level 139 mmol/L 137 mmol/L Potassium Level 3.9 mmol/L 3.6 mmol/L Chloride Level 105 mmol/L 102 mmol/L Carbon Dioxide Level 28 mmol/L 24 mmol/L Anion Gap 6.0 mmol/L 11.0 mmol/L Blood Urea Nitrogen 8 mg/dl 11 mg/dl Creatinine 0.89 mg/dl 0.85 mg/dl Est Creatinine Clear Calc Drug Dose 57.6 ml/min 59.3 ml/min Estimated GFR () 76.1 80.5 Estimated GFR (Non- 65.7 69.4 BUN/Creatinine Ratio 9.3 12.7 Random Glucose 84 mg/dl 90 mg/dl Calcium Level 8.9 mg/dl 9.3 mg/dl Magnesium Level 2.2 mg/dl Total Bilirubin 2.1 mg/dl Aspartate Amino Transf (AST/SGOT) 21 U/L Alanine Aminotransferase (ALT/SGPT) 31 U/L Alkaline Phosphatase 73 U/L Troponin I < 0.015 ng/ml Pro-B-Type Natriuretic Peptide 898 pg/ml Total Protein 7.2 gm/dl Albumin 3.9 gm/dl Globulin 3.3 gm/dl Albumin/Globulin Ratio 1.2 Thyroid Stimulating Hormone (TSH) 1.410 uIu/ml Urine Color YELLOW Urine Appearance CLEAR Urine pH 6.0 Urine Specific [place] 1.011 Urine Protein NEG Urine Glucose (UA) NEG Urine Ketones 1+ Urine Occult Blood TRACE Urine Nitrite NEG Urine Bilirubin NEG Urine Urobilinogen NEG Urine Leukocyte Esterase NEG Urine WBC (Auto) 0 /hpf Urine RBC (Auto) 0-4 /hpf Urine Hyaline Casts (Auto) 0 /lpf Urine Epithelial Cells (Auto) 0-5 /lpf Urine Bacteria (Auto) NEG Imaging: Echo done this morning and pending EKG: This morning atrial fibrillation with a heart rate of 107 bpm, incomplete right bundle branch block. Telemetry reviewed: Atrial fibrillation since admission, rate often well- controlled, sometimes rapid when up and active Assessment & Plan #1. Atrial fibrillation: The onset of this episode of atrial fibrillation was identified during the colonoscopy, however she is currently asymptomatic. We therefore cannot tell if this is a new arrhythmia or if she has paroxysmal atrial fibrillation and is unaware of it, which is probably more likely. The thyroid condition probably does not relate to it since her thyroid has been under control and her TSH is not abnormal. I would treat her for paroxysmal atrial fibrillation, her chads fast score is 2 and therefore I would anticoagulate. I would recommend anticoagulation with Eliquis when it is safe from the GI standpoint, and I would also recommend rate control. She does not need medications for anything else and therefore I'm going to start diltiazem. I will make arrangements for her to come into the office in several weeks to see if she remains in atrial fibrillation, if she does then I would consider electrical cardioversion and care home monitoring to determine her atrial fibrillation burden. I don't think she needs to remain in the hospital, this could be handled as an outpatient. #2. Hypothyroidism: She is on thyroid medications, is unlikely that thyroid condition contributed to the atrial fibrillation since her thyroid is under control. In any case she needs treatment of her atrial fibrillation would not alter our treatment plan. Thank you for allowing me to participate in her care.
[2016-11-06] MEDS ORDERED: DILTIAZEM HCL 120 MG CAPCR PO SCH (10:30)
--- NOTE | 2016-11-06 10:51 | ECHOCARDIOGRAM REPORT ---
*NOTICE TO RECEIVING DEMOCRAT AGENCY This information is strictly Confidential and protected under [place] law. [place] law prohibits you from making any further disclosure of this information unless further disclosure is expressly permitted by the written consent of the person to whom it pertains or is authorized by law. A general authorization for the release of medical or other information is not sufficient for this purpose. Hospital accepts no responsibility if the information is made available to any other person, INCLUDING THE PATIENT. Interpretation Summary * Name: ERNIE CANDELARIO Study Date: 11/06/2016 06:42 AM BP: 161/96 mmHg * Patient Location: C.2T\S\S242\S\2 HR: 114 * : 1945 (M/d/yyyy) Gender: Female Height: 68 in * Age: 70 yrs Ethnicity: CA Weight: 136 lb * Ordering Physician: Jadyn Carvalho * Referring Physician: UNKNOWN * Performed By: Ginger Major R[facility] * * Reason For Study: A-FIB * BSA: 1.7 m2 * Normal biventricular systolic function. * Mild biatrial dilatation. * Trace mitral regurgitation. * Mild tricuspid regurgitation. Procedure Details * Left Ventricle The left ventricle is normal in size. There is normal left ventricular wall thickness. Ejection Fraction = 65-70%. The left ventricular wall motion is normal. * Right Ventricle The right ventricle is normal in size and function. * Atria The left atrium is mildly dilated. The right atrium is mildly dilated. No ASD detected; PFO is not assessed. * Mitral Valve The mitral valve is normal. There is no mitral valve stenosis. There is trace mitral regurgitation. * Tricuspid Valve The tricuspid valve is normal. There is no tricuspid stenosis. There is mild tricuspid regurgitation. Right ventricular systolic pressure is normal. * Aortic Valve The aortic valve is trileaflet. The aortic valve opens well. Aortic stenosis is absent. No aortic regurgitation is present. * Pulmonic Valve The pulmonic valve is not well visualized. The pulmonary valve is inadequately visualized, but the Doppler data is adequate for interpretation. There is no pulmonic valvular stenosis. There is no significant pulmonary regurgitation. * Great Vessels The aortic root is normal size. * Pericardium/Pleural There is no pericardial effusion. * Great Vessels Normal inferior vena cava diameter and respiratory variation suggests normal central venous pressure. * * MMode 2D Measurements and Calculations * IVSd 0.94 cm * * LVIDd 3.9 cm * LVIDs 2.4 cm * LVPWd 0.81 cm * * IVS/LVPW 1.2 * FS 37.2 % * EDV(Teich) 64.2 ml * ESV(Teich) 20.6 ml * EF(Teich) 67.9 % * * EDV(cubed) 57.3 ml * ESV(cubed) 14.2 ml * EF(cubed) 75.2 % * * LV mass(C)d 99.2 grams * LV mass(C)dI 57.2 grams/m\S\2 * * SV(Teich) 43.5 ml * SI(Teich) 25.1 ml/m\S\2 * SV(cubed) 43.1 ml * SI(cubed) 24.9 ml/m\S\2 * * Ao root diam 3.1 cm * Ao root area 7.7 cm\S\2 * LA dimension 4.3 cm * * LA/Ao 1.4 * LVOT diam 2.0 cm * LVOT area 3.1 cm\S\2 * * ESV(MOD-sp4) 26.7 ml * * EDV(MOD-sp2) 50.7 ml * ESV(MOD-sp2) 16.0 ml * EF(MOD-sp2) 68.6 % * * SV(MOD-sp2) 34.8 ml * SI(MOD-sp2) 20.1 ml/m\S\2 * * * * Doppler Measurements and Calculations * Ao V2 max 121.3 cm/sec * Ao max PG 5.9 mmHg * Ao max PG (full) 1.2 mmHg * SERAFIN(V,A) 2.8 cm\S\2 * SERAFIN(V,D) 2.8 cm\S\2 * * LV V1 max PG 4.7 mmHg * * LV V1 max 108.4 cm/sec * * TR max mary beth 236.8 cm/sec * *
[2016-11-06] MEDS ORDERED: APIXABAN 2.5 MG TAB PO ONE (12:45)
[2016-11-06] MEDS ORDERED: ELQ25 PO (14:20)
[2016-11-06] MEDS ORDERED: CRDCD120 PO (14:20)
--- NOTE | 2016-11-06 14:24 | Discharge Instructions ---
Discharge Instructions Date of Service Nov 06, 2016. Admission Reason for Admission: New Onset A-Fib Discharge Discharge Diagnosis / Problem: New onset atrial fibrillation Discharge Goals Goal(s): Decrease discomfort, Improve function, Increase independence, Improve disease control, Diagnostic testing, Therapeutic intervention Activity Recommendations Activity Limitations: resume your previous activity Exercise/Sports Limitations: none . Instructions / Follow-Up Instructions / Follow-Up Patient to be discharged home Please note new addition of medications for atrial fibrillation Eliquis 5 mg tablet twice a day Diltiazem 120 mg tablet once a day Prescriptions sent electronically to pharmacy Will need to follow up with Dr Forte in 1-2 weeks Follow up with Dr Monk in 1-2 weeks If worsening chest pain, palpitations, shortness of breath please report to ER Current Hospital Diet Patient's current hospital diet: AHA Diet (Heart Healthy) Discharge Diet Recommended Diet: AHA Diet (Heart Healthy) Pending Studies Studies pending at discharge: no Medical Emergencies . Who to Call and When: Medical Emergencies: If at any time you feel your situation is an emergency, please call 911 immediately. . Non-Emergent Contact Non-Emergency issues call your: Primary Care Provider Call Non-Emergent contact if: your pain is worsening . . "Provider Documentation" section prepared by Bar Rollins. . VTE Core Measure Inpt VTE Proph given/why not?: Lorenza Hardin, CHARLI's
--- NOTE | 2016-11-06 14:30 | Discharge Summary ---
Discharge Summary Date of Service Nov 06, 2016. Discharge Summary Admission Date: Nov 05, 2016 at 16:49 Discharge Date: Nov 06, 2016 Discharge Disposition: Home Principal Diagnosis: New onset atrial fibrillation Immunizations: Have You Had Influenza Vaccine: Yes Influenza Vaccine Date: Dec 16, 2011 History of Tetanus Vaccine?: Yes Tetanus Immunization Date: Sep 15, 2007 History of Pneumococcal: Yes Pneumococcal Date: Dec 16, 2011 History of Hepatitis B Vaccine: No Consultations: Cardiology Medication Reconciliation New Medications: Apixaban (Eliquis) 2.5 Mg Tab 5 MG PO BID, #60 TAB Diltiazem HCl (Diltiazem Cd) 120 Mg Capcr 120 MG PO QAM, #30 TABS Continued Medications: Cholecalciferol (Vitamin D) 2,000 Unit Cap 2000 UNITS PO DAILY Ibuprofen (Advil) 200 Mg Tab 200 MG PO Q4H PRN for Pain Lactobacillus (Probiotic) 1 Cap Cap 1 CAP PO QAM Levothyroxine Sodium (Synthroid) 75 Mcg Tab 75 MCG PO QAM, TAB Ranitidine Hcl (Zantac) 75 Mg Tab 75 MG PO DAILY PRN for Indigestion Discharge Exam Review of Systems: Constitutional: No fever, No chills, No sweats, No weakness ENT: No hearing loss, No unusual epistaxis, No nasal symptoms, No sore throat Respiratory: No cough, No sputum, No wheezing, No shortness of breath Cardiovascular: No chest pain, No orthopnea, No PND, No edema Abdomen: No pain, No nausea, No vomiting, No diarrhea, No constipation Musculoskeletal: No joint pain, No muscle pain, No swelling, No calf pain Genitourinary - Female: No urinary frequency, No urinary urgency, No urinary incontinence, No urinary retention Neurologic: No memory loss, No paralysis, No weakness, No numbness/tingling Psychiatric: No depression symptoms, No anhedonism, No anxiety, No insomnia Endocrine: No fatigue, No excessive thirst, No excessive urination Integumentary: No rash, No itch Physical Exam: General Appearance: WD/WN, no apparent distress Eyes: normal inspection, PERRL, EOMI, sclerae normal Neck: supple, no adenopathy, thyroid normal, no JVD Respiratory/Chest: chest non-tender, lungs clear, normal breath sounds, no respiratory distress Cardiovascular: regular rate, rhythm, no edema, no gallop, no JVD Abdomen / GI: normal bowel sounds, non tender, soft, no organomegaly Neurologic/Psychiatric: alert, normal mood/affect, normal reflexes, oriented x 3 Skin: normal color, warm/dry, no rash Lymphatic: no adenopathy Hospital Course 70 y/o female with a history of hypothyroidism s/p radiation for Grave's disease and osteopenia who presented to the ED on 11/05 with new onset a-fib during her colonoscopy earlier today. Pt with new onset a-fib with RVR during scope, rate controlled after receiving Lopressor 2.5 mg IV x 1 during procedure. Pt has remained asymptomatic. EKG shows rate controlled a-fib. CXR shows no acute disease. Pt afebrile, VSS in ED. Pt DID NOT receive diltiazem in ED. New onset a-fib--currently rate controlled -Admitted to telemetry for observation -Troponin negative -TSH WNL -Magnesium 2.2 -Echocardiogram - No WMA, EF 65-70% -Lopressor 5 mg IV q4h prn HR >120 -Consult cardiology, started on diltiazem 120 mg tablet once daily and eliquis 5 mg PO BID. F/u with Dr Forte in 1-2 weeks on discharge -EKG q am and prn with chest pain Hypothyroidism s/p radiation for Grave's--stable, TSH WNL -Continue levothyroxine 75 mcg PO qd Osteopenia -Continue vitamin D 2000 IU PO qd DVT prophylaxis -Hold chemical prophylaxis today only due to biopsies taken -LUIS diaz and SCDs Code Status -Level I, FULL RESUSCITATION STATUS Total Time Spent: Greater than 30 minutes This includes examination of the patient, discharge planning, medication reconciliation, and communication with other providers. Discharge Instructions Please refer to the electronic Patient Visit Report (Discharge Instructions) for additional information. Additional Copies To Eyd Monk M.D.
[2016-11-06] MEDS ORDERED: APIXABAN 2.5 MG TAB PO SCH (21:00)
== END 2016-11-06 14:57 | disposition home or self-care (01) ==
LOC: EDBD 13:59 → C.EDC 14:00 → C.2T 16:49 → ENRESERV 17:26
PROVIDERS: ADMIT Hospitalist; ATTEND Hospitalist
DX: I48.91 Unspecified atrial fibrillation (principal); Y84.9 Medical procedure, unspecified as the cause of abnormal reaction of the patient, or of later complication, without mention of misadventure at the time of the procedure; E05.00 Thyrotoxicosis with diffuse goiter without thyrotoxic crisis or storm; E03.9 Hypothyroidism, unspecified; Z79.899 Other long term (current) drug therapy; M85.80 Other specified disorders of bone density and structure, unspecified site; Z87.891 Personal history of nicotine dependence; Z12.11 Encounter for screening for malignant neoplasm of colon; Z86.010 Personal history of colon polyps; D12.2 Benign neoplasm of ascending colon; K64.8 Other hemorrhoids; K52.9 Noninfective gastroenteritis and colitis, unspecified

== ENCOUNTER → 2016-11-05 | Day surgery (SDC) | payer BC ==
[2016-10-31 10:29] VITALS: Ht 174 cm; Wt 62.3 kg
[~2016-11-05] VITALS: Ht 174 cm; Wt 62.3 kg
[~2016-11-05] MED LIST changes: +ESMOLOL HCL 10 MG/ML 10 ML VIAL ONE; +LIDOCAINE HCL 2% 2 ML VIAL (20MG/ML) ONE; +METOPROLOL TARTRATE 1 MG/ML VIAL ONE; +PROPOFOL IV EMULSION 10 MG/ML 20 ML VIAL IV ONE; +SODIUM CHLORIDE 0.9% 500ML 500 ML IV ONE
--- NOTE | 2016-11-05 12:30 | Endo History and Physical ---
History & Physical Date of Service: Nov 05, 2016. Chief Complaint: F/U Colitis, Hx polyps Referring Physician: Edy Monk History of Present Illness 70 yo CF who presents for colonoscopy secondary to history of colon polyps. Past Surgical History Hx Cardiac Surgery: No Hx Internal Defibrillator: No Hx Pacemaker: No Hx Abdominal Surgery: Yes (UTERINE CYSTECTOMY) Hx of Implantable Prosthesis: No Hx Post-Op Nausea and Vomiting: No Hx Cancer Surgery: No Hx Thoracic Surgery: No Hx Orthopedic: No Hx Urinary Tract Surgery: Yes (BLADDER CYST REMOVAL) Family History None Social History Smoking Status: Former Smoker Hx Substance Use: No Hx Alcohol Use: Yes (1 DRINK/DAY) Allergies Coded Allergies: Alendronate (Verified Allergy, Unknown, Bone pain., 10/31/16) Propylthiouracil (Verified Allergy, Unknown, Palpitations., 10/31/16) Current Medications Reported Home Medications Medications Dose Route/Sig Max Daily Dose Days Date Category Zantac (Ranitidine Hcl) 75 Mg Tab 75 Mg PO DAILY PRN 10/31/16 Reported Advil (Ibuprofen) 200 Mg Tab 200 Mg PO Q4H PRN 10/02/15 Reported Synthroid (Levothyroxine Sodium) 75 Mcg Tab 75 Mcg PO QAM 08/14/15 Reported Probiotic (Lactobacillus) 1 Cap Cap 1 Cap PO QAM 08/14/15 Reported Vitamin D (Cholecalciferol) 1,000 Inter.unit Tab 2,000 Inter.unit PO NOON 02/10/14 Reported Vital Signs Weight (Kilograms): 62.27 Height (Feet): 5 Height (Inches): 8.5 Date Time Temp Pulse Resp B/P (MAP) Pulse Ox O2 Delivery O2 Flow Rate FiO2 11/05/16 11:16 36.4 79 20 160/98 (118) 99 Room Air Physical Exam General Appearance: WD/WN, no apparent distress Respiratory/Chest: Auscultation: breath sounds normal Cardiovascular: Heart Auscultation: RRR Abdomen: Bowel Sounds: normal Inspection & Palpation: soft, non-distended, no tenderness, guarding & rebound Assessment and Plan Assessment: 70 yo CF who presents for colonoscopy secondary to history of colon polyps. Plan: Proceed with colonoscopy.
--- NOTE | 2016-11-05 12:56 | Discharge Instructions ---
Endoscopy Patient Instructions Date / Procedure(s) Performed Nov 05, 2016. Colonoscopy Allergy Information Coded Allergies: Alendronate (Verified Allergy, Unknown, Bone pain., 10/31/16) Propylthiouracil (Verified Allergy, Unknown, Palpitations., 10/31/16) Discharge Date / Findings Nov 05, 2016. Colon polyps Internal hemorrhoids Medication Instructions OK to resume all medications today Reported Home Medications Medications Dose Route/Sig Max Daily Dose Days Date Category Zantac (Ranitidine Hcl) 75 Mg Tab 75 Mg PO DAILY PRN 10/31/16 Reported Advil (Ibuprofen) 200 Mg Tab 200 Mg PO Q4H PRN 10/02/15 Reported Synthroid (Levothyroxine Sodium) 75 Mcg Tab 75 Mcg PO QAM 08/14/15 Reported Probiotic (Lactobacillus) 1 Cap Cap 1 Cap PO QAM 08/14/15 Reported Vitamin D (Cholecalciferol) 1,000 Inter.unit Tab 2,000 Inter.unit PO NOON 02/10/14 Reported Provider Instructions Activity Restrictions - No exercising or heavy lifting for 24 hours. - Do not drink alcohol the day of the procedure. - Do not drive a car or operate machinery until the day after the procedure. - Do not make any important decisions or sign important papers in 24 hours after the procedure. Following Day: - Return to full activity which may include returning to work/school. Diet Start your diet with liquids and light foods (jello, soup, juice, toast). Then eat your usual diet if not nauseated. Treatment For Common After Affects For mild abdominal pain, bloating, or excessive gas: - Rest - Eat lightly - Lie on right side Follow-Up Information Follow-up with Edy Monk as scheduled Anesthesia Information What You Should Know You have had a procedure that required some medicine to reduce anxiety and discomfort. This treatment is called moderate sedation. After receiving the treatment, you may be sleepy, but you will be able to breathe on your own. The effects of the treatment may last for several hours. Follow these instructions along with Activity/Diet recommendations noted above: * Do NOT do anything where dizziness or clumsiness would be dangerous. * Rest quietly at home today, then you can be up and about tomorrow. * Have a responsible person stay with you the rest of today. * You may have had an I.V. today. If so, you may take the dressing off later today. Recommendations Call your doctor if: * Trouble breathing * Continuous vomiting for more than 24 hours * Temperature above 101 degrees * Severe abdominal pain or bloating * Pain not relieved by pain medicine ordered * There is increased drainage or redness from any incision * A large amount of rectal bleeding greater than 2-3 tablespoons. (If you had a polyp/s removed or have hemorrhoids, a small amount of blood - from the rectum is to be expected.) * You have any unanswered questions or concerns. IN THE EVENT OF A SERIOUS EMERGENCY, GO TO THE NEAREST EMERGENCY ROOM Your discharge instructions were prepared by provider Aleksandr Nowak. Patient Instructions Signature Page Judie Westbrook Patient (or Guardian) Signature/Date: I have read and understand the instructions given to me by my caregivers. Caregiver/RN/Doctor Signature/Date: The above-named patient and/or guardian has received patient instructions on this date. + Original Patient Signature Page (only) stays with chart. Please make copy for patient.
--- NOTE | 2016-11-05 12:59 | GI REPORT ---
Procedure Date: 11/05/2016 12:34 PM Procedure: Colonoscopy Indications: High risk colon cancer surveillance: Personal history of colonic polyps Medicines: Monitored Anesthesia Care Complications: No immediate complications. Estimated Blood Loss: Estimated blood loss: none. Procedure: Pre-Anesthesia Assessment: - Prior to the procedure, a History and Physical was performed, and patient medications and allergies were reviewed. The patient's tolerance of previous anesthesia was also reviewed. The risks and benefits of the procedure and the sedation options and risks were discussed with the patient. All questions were answered, and informed consent was obtained. Prior Anticoagulants: The patient has taken no previous anticoagulant or antiplatelet agents. ASA Grade Assessment: II - A patient with mild systemic disease. After reviewing the risks and benefits, the patient was deemed in satisfactory condition to undergo the procedure. After I obtained informed consent, the scope was passed under direct vision. Throughout the procedure, the patient's blood pressure, pulse, and oxygen saturations were monitored continuously. The scope was introduced through the anus and advanced to the terminal ileum. The colonoscopy was performed without difficulty. The patient tolerated the procedure well. The quality of the bowel preparation was good. The terminal ileum, ileocecal valve, appendiceal orifice, and rectum were photographed. Findings: Three sessile polyps were found in the ascending colon. The polyps were 4 to 7 mm in size. These polyps were removed with a hot snare. Resection and retrieval were complete. Non-bleeding internal hemorrhoids were found during retroflexion. The hemorrhoids were small. Impression: - Three 4 to 7 mm polyps in the ascending colon, removed with a hot snare. Resected and retrieved. - Non-bleeding internal hemorrhoids. Recommendation: - Resume previous diet. - Continue present medications. - Repeat colonoscopy for surveillance based on pathology results. - Return to primary care physician as previously scheduled. Aleksandr Nowak DO 11/05/2016 12:58:39 PM This report has been signed electronically. Note Initiated On: 11/05/2016 12:34 PM I attest to the content of the Intraoperative Record and orders documented therein, exceptions below
[2016-11-05 13:44] VITALS: BP 145/93; PULSE 75; O2SAT 99
--- NOTE | 2016-11-05 14:36 | Anesthesiology Progress Note ---
Anesthesia Post Op Note Date & Time Nov 05, 2016 at 14:33 Vital Signs Pain Intensity: 0 Vital Signs Past 12 Hours Date Time Temp Pulse Resp B/P (MAP) Pulse Ox O2 Delivery O2 Flow Rate FiO2 11/05/16 13:44 75 18 145/93 (110) 99 Room Air 11/05/16 13:29 78 18 138/93 (108) 98 Room Air 11/05/16 13:14 76 18 146/98 (114) 99 Room Air 11/05/16 12:59 84 18 119/73 (88) 99 Room Air 11/05/16 11:16 36.4 79 20 160/98 (118) 99 Room Air Notes Mental Status: alert / awake / arousable, participated in evaluation Pt Amnestic to Procedure: Yes Nausea / Vomiting: adequately controlled Pain: adequately controlled Airway Patency, RR, SpO2: stable & adequate BP & HR: stable & adequate Hydration State: stable & adequate Anesthetic Complications: no major complications apparent Patient in NSR with some mild sinus ectopy at start of case. Towards end of procedure, patient entered AFib with RVR in low 100s. Rate controlled to 80s with metoprolol. She was asymptomatic in pacu and ECG revealed AFIB in 80s. I spoke with the PCP who confirms that the patient has no known history of AFib and had a relatively normal echocardiogram 2 years ago. Given the new onset of this problem, I have arranged for the patient to be evaluated in the ER, where decision about inpatient versus outpatient management, anticoagulation, and rate versus rhythm control can be made.
== END | disposition home or self-care (01) ==
LOC: C.GI 10:43
PROVIDERS: ATTEND Internal Medicine
DX: Z12.11 Encounter for screening for malignant neoplasm of colon (principal); Z86.010 Personal history of colon polyps; D12.2 Benign neoplasm of ascending colon; K64.8 Other hemorrhoids; Z87.891 Personal history of nicotine dependence; E03.9 Hypothyroidism, unspecified; E05.00 Thyrotoxicosis with diffuse goiter without thyrotoxic crisis or storm; K52.9 Noninfective gastroenteritis and colitis, unspecified

== ENCOUNTER → 2016-11-14 | Outpatient (CLI) | payer BC ==
[~2016-11-14] MED LIST changes: -CHOL100010 PO; +CHOL200010 PO; +CRDCD120 PO; +ELQ25 PO
[2016-11-14 16:57] LABS: BASO % 0.3 %; BASO ABS # 0.02 K/uL (0-0.2); COMPLETE YES; HEMATOCRIT 41.6 % (37-47); LYMPH % 19.2 %; LYMPH ABS # 1.13 K/uL (1.2-3.4); MEAN CORPUSCULAR HEMOGLOBIN 31.9 pg (25-34); MEAN CORPUSCULAR HGB CONC 32.9 g/dl (32-36); MEAN PLATELET VOLUME 10.2 fL (7.4-10.4); MONO % 10.9 %; NEUT % 68.6 %; PLATELET COUNT 225 K/uL (130-400); RED BLOOD COUNT 4.29 M/uL (4.2-5.4); WHITE BLOOD COUNT 5.88 K/uL (4.8-10.8)
[2016-11-14 17:13] LABS: BLOOD UREA NITROGEN 15 mg/dl (7-18); CALCIUM 9.2 mg/dl (8.5-10.1); CARBON DIOXIDE 28 mmol/L (21-32); CHLORIDE 104 mmol/L (98-107); GLUCOSE 86 mg/dl (70-99); POTASSIUM 3.9 mmol/L (3.5-5.1); SODIUM 140 mmol/L (136-145)
[2016-11-14 17:29] LABS: BUN/CREATININE RATIO 15.1 (10-20); CREATININE 0.96 mg/dl (0.60-1.20)
== END | disposition home or self-care (01) ==
LOC: C.LABBFT 12:05
PROVIDERS: ATTEND Internal Medicine
DX: K92.1 Melena (principal)

== ENCOUNTER → 2016-11-20 | Outpatient (CLI) | payer BC ==
[2016-11-20 18:01] LABS: BASO % 0.4 %; BASO ABS # 0.02 K/uL (0-0.2); COMPLETE YES; EOS % 1.3 %; HEMATOCRIT 37.9 % (37-47); IG% 0.2 %; LYMPH % 26.9 %; LYMPH ABS # 1.21 K/uL (1.2-3.4); MEAN CELL VOLUME 97.2 fL (80-100); MEAN CORPUSCULAR HEMOGLOBIN 32.6 pg (25-34); MEAN CORPUSCULAR HGB CONC 33.5 g/dl (32-36); MONO % 9.6 %; NEUT % 61.6 %; PLATELET COUNT 212 K/uL (130-400); WHITE BLOOD COUNT 4.49 K/uL (4.8-10.8)
== END | disposition home or self-care (01) ==
LOC: C.LABBFT 12:15
PROVIDERS: ATTEND Internal Medicine
DX: K92.1 Melena (principal)

== ENCOUNTER → 2016-12-10 | Outpatient (CLI) | payer BC ==
[2016-12-10 12:25] LABS: BASO % 0.5 %; BASO ABS # 0.02 K/uL (0-0.2); COMPLETE YES; EOS % 3.9 %; HEMATOCRIT 41.3 % (37-47); IG% 0.2 %; LYMPH % 25.3 %; LYMPH ABS # 1.09 K/uL (1.2-3.4); MEAN CELL VOLUME 94.9 fL (80-100); MEAN CORPUSCULAR HEMOGLOBIN 31.7 pg (25-34); MEAN CORPUSCULAR HGB CONC 33.4 g/dl (32-36); MONO % 9.5 %; NEUT % 60.6 %; PLATELET COUNT 192 K/uL (130-400); RED BLOOD COUNT 4.35 M/uL (4.2-5.4); WHITE BLOOD COUNT 4.31 K/uL (4.8-10.8)
[2016-12-10 12:41] LABS: URINE APPEARANCE CLEAR (CLEAR); URINE BILIRUBIN NEG (NEG); URINE COLOR YELLOW; URINE NITRITE NEG (NEG); URINE SPECIFIC GRAVITY 1.018 (1.000-1.030); UROBILINOGEN NEG (NEG); ZZUR CULT IF INDIC CLEAN CATCH NO
[2016-12-10 12:43] LABS: MANUAL MICROSCOPIC REQUIRED? NO; REVIEW REQ? NO
[2016-12-10 13:03] LABS: ALT/SGPT 35 U/L (12-78); BLOOD UREA NITROGEN 17 mg/dl (7-18); BUN/CREATININE RATIO 19.7 (10-20); CALCIUM 8.9 mg/dl (8.5-10.1); CARBON DIOXIDE 29 mmol/L (21-32); CHLORIDE 103 mmol/L (98-107); CREATININE 0.88 mg/dl (0.60-1.20); GLUCOSE 97 mg/dl (70-99); HDL CHOLESTEROL 96 mg/dl; POTASSIUM 4.2 mmol/L (3.5-5.1); SODIUM 138 mmol/L (136-145)
[2016-12-10 13:17] LABS: ALB/GLOB RATIO 1.3 (0.9-2); ALKALINE PHOSPHATASE 66 U/L (45-117); AST/SGOT 23 U/L (15-37); CHOLESTEROL 185 mg/dl (0-200); CHOLESTEROL/HDL RATIO 1.9; LDL CHOLESTEROL CALCULATED 76 mg/dl; THYROID STIMULATING HORMONE 0.945 uIu/ml (0.300-4.500); TRIGLYCERIDES 63 mg/dl (0-150); VERY LOW DENSITY LIPOPROT CALC 13 mg/dl
== END | disposition home or self-care (01) ==
LOC: C.LABBFT 09:51
PROVIDERS: ATTEND Internal Medicine
DX: D72.819 Decreased white blood cell count, unspecified (principal); Z13.6 Encounter for screening for cardiovascular disorders; E55.9 Vitamin D deficiency, unspecified; E03.9 Hypothyroidism, unspecified

== ENCOUNTER → 2017-02-14 | Day surgery (SDC) | payer BC ==
[~2017-02-14] VITALS: Ht 172.7 cm; Wt 62.0 kg
[~2017-02-14] MED LIST changes: +ACET325T96 PO; -CRDCD120 PO; +DILT120C50 PO; +LIDOCAINE HCL 2% 2 ML VIAL (20MG/ML) ONE; +METO25TA3 PO; +PROPOFOL IV EMULSION 10 MG/ML 20 ML VIAL IV ONE
[2017-02-14 07:00] VITALS: BP 159/107; PULSE 91; TEMP 36.5; O2SAT 99; Ht 172.7 cm; Wt 62.0 kg
--- NOTE | 2017-02-14 07:39 | History & Physical Bridge Note ---
H&P Re-Evaluation Bridge Note: I have examined the patient, reviewed the History & Physical and in the interval since the performance of the History & Physical I have noted the following changes of clinical significance: No changes noted. I reviewed the indications, procedure, risks and alternatives with her and she underestands and agrees to proceed. Consent obtained.
[2017-02-14 07:40] VITALS: BP 163/86; PULSE 100; O2SAT 100
[2017-02-14 07:45] VITALS: BP 138/75; PULSE 66; O2SAT 99
--- NOTE | 2017-02-14 07:46 | Cardioversion ---
Electricial Cardioversion Rpt Date of Service: 02/14/2017 Electrical Cardioversion Rprt The patient was brought to the laboratory being NPO after midnight and was identified in the laboratory, connected to the recording apparatus including electrocardiographic monitoring, noninvasive blood pressure monitoring and pulse oximetry. Anteroposterior patch electrodes were placed. The patient was anesthetized by the anesthesia department. Once adequate anesthesia was obtained a synchronized biphasic shock was delivered using 200 J with conversion to a sinus rhythm. The patient awoke from the anesthetic without sequela, will be observed briefly and then discharged.
--- NOTE | 2017-02-14 08:11 | Anesthesiology Progress Note ---
Anesthesia Post Op Note Date & Time Feb 14, 2017 at 08:11 Vital Signs Pain Intensity: 0 Vital Signs Past 12 Hours Date Time Temp Pulse Resp B/P (MAP) Pulse Ox O2 Delivery O2 Flow Rate FiO2 02/14/17 08:00 70 18 128/75 (92) 97 Room Air 02/14/17 07:50 60 18 135/76 (95) 97 Room Air 02/14/17 07:45 66 18 138/75 99 Room Air 02/14/17 07:40 100 18 163/86 100 Nasal Cannula 4 02/14/17 07:00 36.5 91 18 159/107 99 Room Air Notes Mental Status: alert / awake / arousable, participated in evaluation Pt Amnestic to Procedure: Yes Nausea / Vomiting: adequately controlled Pain: adequately controlled Airway Patency, RR, SpO2: stable & adequate BP & HR: stable & adequate Hydration State: stable & adequate Anesthetic Complications: no major complications apparent
[2017-02-14 09:00] VITALS: BP 118/67; PULSE 68; O2SAT 95
--- NOTE | 2017-02-14 09:07 | Discharge Instructions ---
Discharge Instructions Date of Service Feb 14, 2017. Admission Reason for Admission: Atrial fibrillation Discharge Discharge Diagnosis / Problem: electrical cardioversion Discharge Goals Goal(s): Improve disease control Activity Recommendations Activity Limitations: resume your previous activity . Instructions / Follow-Up Instructions / Follow-Up ACTIVITY RECOMMENDATIONS: * May resume driving tomorrow. SPECIAL CARE: * May apply burn ointment for skin irritation. * Please contact physician for any lightheadedness, dizziness or palpitations. Current Hospital Diet Patient's current hospital diet: AHA Diet (Heart Healthy) Discharge Diet Recommended Diet: AHA Diet (Heart Healthy) Procedures Procedures Performed: Electrical cardioversion Pending Studies Studies pending at discharge: no Laboratory Results Lipid Panel Test 12/10/16 10:01 Range/Units Triglycerides Level 63 0-150 mg/dl Cholesterol Level 185 0-200 mg/dl HDL Cholesterol 96 mg/dl Cholesterol/HDL Ratio 1.9 LDL Cholesterol, Calculated 76 mg/dl Medical Emergencies . Who to Call and When: Medical Emergencies: If at any time you feel your situation is an emergency, please call 911 immediately. . Non-Emergent Contact Non-Emergency issues call your: Primary Care Provider . . "Provider Documentation" section prepared by Rojelio Forte. . VTE Core Measure Inpt VTE Proph given/why not?: Other Anticoagulation
== END | disposition home or self-care (01) ==
LOC: C.CATH 06:46
PROVIDERS: ATTEND Internal Medicine Cardiovascular Disease
DX: I48.91 Unspecified atrial fibrillation (principal); E03.9 Hypothyroidism, unspecified; I49.9 Cardiac arrhythmia, unspecified; M85.80 Other specified disorders of bone density and structure, unspecified site; Z87.891 Personal history of nicotine dependence; Z79.899 Other long term (current) drug therapy; E55.9 Vitamin D deficiency, unspecified

== ENCOUNTER → 2017-09-25 | Outpatient (CLI) | payer BC ==
[~2017-09-25] MED LIST changes: +ACET-1693 PO; -ACET325T96 PO; -DILT120C50 PO; -IBUP-1050 PO; -LIDOCAINE HCL 2% 2 ML VIAL (20MG/ML) ONE; +OPTIRAY 320 IV PRN; -PROPOFOL IV EMULSION 10 MG/ML 20 ML VIAL IV ONE
--- NOTE | 2017-09-25 13:54 | DIAGNOSTIC IMAGING REPORT ---
ABD/PELVIS COMBO CLINICAL HISTORY: 71 years-old Female presenting with R31.29 Microscopic hematuria. TECHNIQUE: Multidetector CT of the abdomen and pelvis was performed before and after the administration of intravenous contrast. IV contrast: 119 mL of Optiray 320. A dose lowering technique was used consistent with the principles of ALARA (as low as reasonably achievable). COMPARISON: 08/14/2015. CT DOSE (mGy.cm): The estimated cumulative dose is 1025.52 mGycm. FINDINGS: Oil Inspector topogram: Unremarkable. Lung bases: Minimal basilar opacities, likely atelectasis. Mild interlobular septal thickening. Mosaic attenuation may have a vascular or small airways etiology. Enlargement of the right atrium. No pericardial or pleural effusion. Liver: Normal morphology. Normal density. Several well-defined hypodensities in the liver, likely hepatic cysts or hamartomas. A focal site of heterogeneous hypoenhancement is overlying capsular retraction evident at segment 6 (series 5 image 107), unchanged from prior. This may represent a site of prior trauma. Patent hepatic vasculature. Dilated intrahepatic IVC and hepatic veins. Biliary: Mild intrahepatic and extrahepatic biliary ductal dilatation. Normal gallbladder. Pancreas: No evidence of pancreas divisum. Pancreas otherwise normal. Spleen: Normal. Adrenal glands: Normal. Kidneys and ureters: Normal. No hydronephrosis. Punctate hyperdensity within the proximal to mid right ureter (series 3 image 190) though this may be artifactual. No calculi evident in the kidneys. No solid renal mass. A cyst is noted at the upper pole the left kidney. No filling defect within the urinary collecting systems. Ureters are nondistended. Bladder: Normal. Pelvic organs: Uterus and ovaries normal. Bowel: Normal appendix. No bowel obstruction. Duodenal diverticula may be present near the major papilla. Peritoneal cavity: No free fluid or intraperitoneal gas. Lymph nodes: No enlarged lymph nodes in the abdomen or pelvis. Vasculature: Atherosclerosis of the normal caliber abdominal aorta. IVC patent. Abdominal wall: Small fat-containing umbilical hernia. Musculoskeletal: Normal. IMPRESSION: 1. Questionable punctate hyperdensity in the proximal to mid right ureter. Differential considerations include punctate calculus versus artifact. No evidence of right hydronephrosis or hydroureter. No other potential renal or ureteral calculi. No evidence of solid renal or urothelial mass. 2. Evidence of pancreas divisum. Combination of this and the presence of a duodenal diverticula may account for mild intrahepatic and extra hepatic biliary ductal dilatation. Electronically signed by: Tanner Adams M.D. 09/25/2017 1:52 PM Dictated Date/Time: 09/25/2017 1:42 PM
== END | disposition home or self-care (01) ==
LOC: C.CTS 13:09
PROVIDERS: ATTEND Internal Medicine
DX: R31.29 Other microscopic hematuria (principal); K57.10 Diverticulosis of small intestine without perforation or abscess without bleeding

== ENCOUNTER → 2017-10-17 | Outpatient (CLI) | payer BC ==
[~2017-10-17] MED LIST changes: -OPTIRAY 320 IV PRN
== END | disposition home or self-care (01) ==
LOC: C.LABBFT 14:34
PROVIDERS: ATTEND Internal Medicine
DX: E03.9 Hypothyroidism, unspecified (principal); I48.91 Unspecified atrial fibrillation

== ENCOUNTER → 2017-10-31 | Outpatient (CLI) | payer BC ==
--- NOTE | 2017-11-03 13:56 | MAMMOGRAPHY REPORT ---
BILATERAL DIGITAL SCREENING MAMMOGRAM TOMOSYNTHESIS WITH CAD: 10/31/2017 CLINICAL HISTORY: Routine screening. Patient has no complaints. TECHNIQUE: Breast tomosynthesis in addition to standard 2D mammography was performed. Current study w as also evaluated with a Computer Aided Detection (CAD) system. COMPARISON: Comparison is made to exams dated: 10/30/2016 mammogram, 10/30/2016 mammogram, 10/19/2015 m ammogram, 10/21/2014 mammogram, 10/10/2014 mammogram, and 10/07/2013 mammogram - [facility] nter. BREAST COMPOSITION: The tissue of both breasts is extremely dense, which lowers the sensitivity of ma mmography. FINDINGS: No suspicious masses, calcifications, or areas of architectural distortion are noted in either breast . There has been no significant interval change compared to prior exams. IMPRESSION: ACR BI-RADS CATEGORY 1: NEGATIVE There is no mammographic evidence of malignancy. A 1 year screening mammogram is recommended.( 019) The patient will receive written notification of the results. Some breast cancers are not detected with mammography. A negative mammographic report should not rena y biopsy if a clinically suggestive mass is present. Lilly Atkinson M.D. /:10/31/2017 15:42:49 Senior Controls Technician: RT Perez(Sofi)(Elizabeth)(BD), [facility] letter sent: Normal 1/2 BI-RADS Code: ACR BI-RADS Category 1: Negative
== END | disposition home or self-care (01) ==
LOC: C.MAMM 10:24
PROVIDERS: ATTEND Internal Medicine
DX: Z12.31 Encounter for screening mammogram for malignant neoplasm of breast (principal)